=== PATIENT | male | born 1960 | race Two or more races ===

== ENCOUNTER 2019-02-24 10:02 | Emergency (ER) | payer MEDICAID, OTHER ==
[~2019-02-24] VITALS: Ht 177.8 cm; Wt 117.9 kg
[~2019-02-24 10:02] MED LIST: ALBU8.5H8 INH; ASPI-1169 PO; CARV3.122 PO; ESOM40CA PO; FURO-145 PO; LISI10TA5 PO; PRED20TA PO; SIMV20TA6 PO
--- NOTE | 2019-02-24 10:08 | NUR ---
[id number], C/O SOB AND DECREASED APPETITE X 3DAYS, +N/V, CURRENTLY ON ATB FOR CONGESTION. ADMITS TO BEING HOMELESS. TO ER BED 3, HOOKED TO MONITOR, CHANGED TO [facility]OS[facility], AWAITING MD CORTEZ.
--- NOTE | 2019-02-24 10:21 | NUR ---
DR CHEATHAM AT BEDSIDE
[2019-02-24] MEDS ORDERED: ONDANSETRON HCL/PF 4 MG/2 ML VIAL IVP ONE (10:30)
[2019-02-24 10:56] LABS: BASOPHILS # (AUTO) 0.1 /CMM (0.0-0.2); BASOPHILS % (AUTO) 1.3 % (0.0-2.0); EOSINOPHILS % (AUTO) 3.1 % (0.0-6.0); HEMATOCRIT 45 % (39-51); HEMOGLOBIN 13.6 g/dL (13.5-17.5); LYMPHOCYTES # (AUTO) 1.1 /CMM (0.8-4.8); LYMPHOCYTES % (AUTO) 14.2 % (20.0-44.0); MEAN CORPUSCULAR HGB CONC 30 g/dl (31.0-36.0); MEAN CORPUSCULAR VOLUME 91 fL (80-96); MONOCYTES # (AUTO) 0.8 /CMM (0.1-1.30); MONOCYTES % (AUTO) 10.9 % (2.0-12.0); NEUTROPHILS # (AUTO) 5.3 /CMM (1.8-8.9); NEUTROPHILS % (AUTO) 70.5 % (43.0-81.0); PLATELET COUNT (AUTO) 180 /CMM (150-450); RED BLOOD CELL COUNT(AUTO) 5.01 MIL/uL (4.5-6.0); WHITE BLOOD COUNT (AUTO) 7.5 K/uL (4.3-11.0)
[2019-02-24 11:08] LABS: CALCIUM, SERUM 9.9 mg/dL (8.5-10.1); CREATININE 1.1 mg/dL (0.6-1.3); POTASSIUM 4.4 mmol/L (3.5-5.1)
[2019-02-24] MEDS ORDERED: ONDANSETRON HCL/PF 4 MG/2 ML VIAL ONE (11:10)
[2019-02-24 11:13] LABS: ALBUMIN 3.1 g/dL (3.4-5.0); BILIRUBIN,DIRECT 0.4 mg/dL (0.0-0.2); BILIRUBIN,TOTAL 0.7 mg/dL (0.2-1.0); TOTAL PROTEIN, SERUM 7.1 g/dL (6.4-8.2)
[2019-02-24] MEDS ORDERED: ONDANSETRON HCL/PF 4 MG/2 ML VIAL IM ONE (11:30)
[2019-02-24 11:31] LABS: B-TYPE NATRIURETIC PEPTIDE 2926 PG/ML (0-125)
--- NOTE | 2019-02-24 13:26 | NUR ---
FOOD TRAY PROVIDED TO PATIENT
--- NOTE | 2019-02-24 14:03 | NUR ---
Patient given written and verbal discharge instructions. Patient verbalizes understanding of instructions. Patient is ambulatory with steady gait. Patient assisted to assisted to waiting room while waiting for rn social services.
--- NOTE | 2019-02-24 14:43 | NUR ---
CHELSI met with the pt. outside in the waiting room. Per pt. he needs to go back to get his truck from [facility] office where he had a meeting with his casemanager. Pt. is requesting a TAP card. CHELSI offered pt. homeless resources and detention as well but pt. 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 Pt. was provided with a TAP card. No other social service needs are requested at this time.
--- NOTE | 2019-02-24 14:45 | NUR ---
Patient given written and verbal discharge instructions. Patient verbalizes understanding of instructions. Patient is ambulatory with steady gait. Refuses offer of senior care placement. Patient given list of available shelters in surrounding area. Pt given food.
[2019-02-24 15:52] VITALS: BP 137/83
== END 2019-02-24 15:53 | disposition home or self-care (01) ==
LOC: ER 10:08
DX: J40 Bronchitis, not specified as acute or chronic (principal); R21 Rash and other nonspecific skin eruption; B35.6 Tinea cruris; R11.2 Nausea with vomiting, unspecified; F17.200 Nicotine dependence, unspecified, uncomplicated; I11.0 Hypertensive heart disease with heart failure; I50.9 Heart failure, unspecified; Z59.0 Homelessness; Z60.2 Problems related to living alone; Z79.899 Other long term (current) drug therapy; Z79.82 Long term (current) use of aspirin; Z98.890 Other specified postprocedural states
CPT/HCPCS: 36415; 71045; 80048; 80076; 83605; 83690; 83880; 84484; 85025; 87804 ×2; 93005; 96372; 99284; J2405